=== PATIENT | male | born 1985 | race Two or more races ===

== ENCOUNTER 2016-09-24 01:01 | Emergency (ER) | payer OTHER ==
[~2016-09-24] VITALS: Ht 177.8 cm; Wt 72.6 kg
[2016-09-24 01:05] VITALS: BP 151/82
--- NOTE | 2016-09-24 02:00 | NUR ---
per front desk lead admitting, pt left [facility] ED
== END 2016-09-24 03:01 | disposition home or self-care (01) ==
LOC: ER 01:05
DX: Z53.21 Procedure and treatment not carried out due to patient leaving prior to being seen by health care provider (principal)
CPT/HCPCS: A4606; Z7610

== ENCOUNTER 2017-08-08 20:43 | Emergency (ER) | payer SELFPAY ==
[~2017-08-08] VITALS: Ht 177.8 cm; Wt 73.9 kg
--- NOTE | 2017-08-08 23:01 | NUR ---
PT AMBULATORY TO ER BED 3 PT STATES "WAS ON THE TREADMILL AND STARTED HAVING PAIN IN MY CHEST" PT STATES ALSO "FEELING ANXIOUS" PT AOX3 RR EVEN AND UNLABORED. NO SOB NOTED. NAD NOTED. NO NVD AT THIS TIME. PT NOT DIAPHORETIC. PT GOWNED AND PLACED ON MONITOR WAITING FOR MD CHOI.
--- NOTE | 2017-08-08 23:26 | NUR ---
ERVIN POSADA AT BEDSIDE FOR EVAL.
[2017-08-08 23:53] LABS: BASOPHILS % (AUTO) 0.7 % (0.0-2.0); EOSINOPHILS # (AUTO) 0.2 /CMM (0.0-0.7); EOSINOPHILS % (AUTO) 2.5 % (0.0-6.0); HEMATOCRIT 46 % (39-51); HEMOGLOBIN 16.1 g/dL (13.5-17.5); LYMPHOCYTES # (AUTO) 2.3 /CMM (0.8-4.8); LYMPHOCYTES % (AUTO) 31.8 % (20.0-44.0); MEAN CORPUSCULAR HEMOGLOBIN 31 PG (26.0-33.0); MEAN CORPUSCULAR HGB CONC 35 g/dl (31.0-36.0); MEAN CORPUSCULAR VOLUME 89 fL (80-96); MONOCYTES # (AUTO) 0.5 /CMM (0.1-1.30); NEUTROPHILS # (AUTO) 4.1 /CMM (1.8-8.9); PLATELET COUNT (AUTO) 182 /CMM (150-450); RDW COEFFICIENT OF VARIATION 12.5 (11.5-15.0); RED BLOOD CELL COUNT(AUTO) 5.18 MIL/uL (4.5-6.0); WHITE BLOOD COUNT (AUTO) 7.1 K/uL (4.3-11.0)
--- NOTE | 2017-08-09 00:03 | NUR ---
RADIOLOGY AT BEDSIDE FOR CXR
[2017-08-09 00:04] LABS: CALCIUM, SERUM 9.2 mg/dL (8.5-10.1); CARBON DIOXIDE 28 mmol/L (21-32); CHLORIDE 107 mmol/L (98-107); GLUCOSE 95 mg/dL (74-106); POTASSIUM 4.3 mmol/L (3.5-5.1); SODIUM SERUM 144 mmol/L (136-145); UREA NITROGEN, BLOOD 11 mg/dL (7-18)
[2017-08-09 00:08] LABS: INR 1.04 (0.87-1.13)
[2017-08-09 00:14] LABS: TROPONIN I < 0.017 ng/mL (0.00-0.056)
--- NOTE | 2017-08-09 00:36 | NUR ---
Milagros rao in [facility] - 08/09/17 at 0037 by AMMON REPORT GIVEN TO DANIEL JEFFERSON [facility] [phone]
--- NOTE | 2017-08-09 00:48 | NUR ---
IV removed. Catheter intact and site benign. Pressure and 4x4 applied to site. No bleeding noted. Patient discharged to home in stable condition. Written and verbal after care instructions given. Patient verbalizes understanding of instruction. ambulatory with a steady gait
[2017-08-09 00:49] VITALS: BP 130/66
== END 2017-08-09 00:49 | disposition home or self-care (01) ==
LOC: ER 20:46
DX: R07.89 Other chest pain (principal); F17.210 Nicotine dependence, cigarettes, uncomplicated; Z88.0 Allergy status to penicillin
CPT/HCPCS: 36415; 71045; 80048; 84484; 85025; 85730; 93005; 99285; 99406; A4606; Z7610

== ENCOUNTER 2018-02-02 22:23 | Emergency (ER) | payer OTHER ==
[~2018-02-02] VITALS: Ht 175.3 cm; Wt 74.8 kg
[2018-02-02 22:23] VITALS: BP 162/100
== END 2018-02-02 22:54 | disposition home or self-care (01) ==
LOC: ER 22:27
DX: F41.9 Anxiety disorder, unspecified (principal); R03.1 Nonspecific low blood-pressure reading; Z88.0 Allergy status to penicillin
CPT/HCPCS: 99281; A4606; Z7610; Z7502